=== PATIENT | male | born 2000 | race Caucasian/White ===

== ENCOUNTER 2023-07-28 15:22 | Emergency (ER) | payer SELFPAY ==
[2023-07-28 15:38] VITALS: BP 132/80; PULSE 67; RESP 14; TEMP 36.7; O2SAT 100; BMI 22.5
--- NOTE | 2023-07-28 17:43 | ED.DENTAL1 ---
HPI - Dental/Oral General Chief complaint: Dental/Oral Stated complaint: DENTAL PAIN Time Seen by Provider: 07/28/23 17:43 Source: patient Mode of arrival: walk-in History of Present Illness HPI Narrative: patient presents to emergency room with a toothache.has been bothering him for several days and not getting over not getting better with [id number] meds. He does not have a local dentist. He's not had previous dental procedures on this tooth. He's notswellingor purulent debris in his mouth. He had been eating steak and potato chips when he thought they may have cracked the already problematic tooth. Related Data Home Medications Medication Instructions Recorded Confirmed No Known Home Medications 07/28/23 07/28/23 Allergies Allergy/AdvReac Type Severity Reaction Status Date / Time No Known Drug Allergies Allergy Verified 07/28/23 15:43 Exam Narrative Exam Narrative: no hydrated well-nourished very pleasant young man vital signs are stable is afebrile problem focused examination shows no craniofacial swelling or evidence of infectious process on gross inspection. On the intraoral area he's got at least five total carious teeth but one was bothering his is on the lower left mandible. There is no swelling or evidence of gingival destruction or disease. The buccal mucosa, floor the mouth uvula and tongue are all normal. Constitutional Vital Signs, click to edit/add: Last Vital Signs Temp 98.1 F 07/28/23 15:38 Pulse 67 07/28/23 15:38 Resp 14 07/28/23 15:38 BP 132/80 07/28/23 15:38 Pulse Ox 100 07/28/23 15:38 O2 Del Method Room Air 07/28/23 15:38 Course Vital Signs Vital signs: Vital Signs Temperature 98.1 F 07/28/23 15:38 Pulse Rate 67 07/28/23 15:38 Respiratory Rate 14 07/28/23 15:38 Blood Pressure 132/80 07/28/23 15:38 Pulse Oximetry 100 07/28/23 15:38 Oxygen Delivery Method Room Air 07/28/23 15:38 Temperature 98.1 F 07/28/23 15:38 Pulse Rate 67 07/28/23 15:38 Respiratory Rate 14 07/28/23 15:38 Blood Pressure 132/80 07/28/23 15:38 Pulse Oximetry 100 07/28/23 15:38 Oxygen Delivery Method Room Air 07/28/23 15:38 Discharge Plan Discharge Chief Complaint: Dental/Oral Clinical Impression: Toothache Patient Disposition: Home, Self-Care Time of Disposition Decision: 18:18 Prescriptions / Home Meds: No Action No Known Home Medications Additional Instructions: pen VK/[place] Stand Alone Forms: Portal Instructions Referrals: Physician,Non-Staff, MD [Primary Care Provider] - 1 week
== END 2023-07-28 18:30 | disposition home or self-care (01) ==
PROVIDERS: Emergency Provider Emergency Medicine Emergency Medical Services
DX: K08.89 Other specified disorders of teeth and supporting structures (principal)
CPT/HCPCS: 99283